=== PATIENT | female | born 1955 | race Caucasian/White ===

== ENCOUNTER 2020-10-08 19:11 | Emergency (ER) | payer OTHER, MEDICARE ==
[2020-10-08] MEDS ORDERED: Losartan 25 MG Tab PO SCH (20:15)
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
== END 2020-10-08 20:31 | disposition home or self-care (01) ==
LOC: JP.ED 19:11
DX: Z04.1 Encounter for examination and observation following transport accident (principal); I10 Essential (primary) hypertension; Z91.040 Latex allergy status; Z88.6 Allergy status to analgesic agent; V89.2XXA Person injured in unspecified motor-vehicle accident, traffic, initial encounter
CPT/HCPCS: 99283